=== PATIENT | female | born 1970 | race Caucasian/White ===

== ENCOUNTER 2017-06-04 12:21 | Emergency (ER) | payer OTHER ==
[~2017-06-04] VITALS: Ht 167.6 cm; Wt 155.2 kg
[~2017-06-04 12:21] MED LIST: ALBU1AER9 INH; IBUP-103 PO; LISINOPRIL/HCTZ PO
[2017-06-04 12:27] VITALS: Ht 167.6 cm; Wt 155.2 kg
[2017-06-04] MEDS ORDERED: MoRPHine SULFATE 10 MG/ML CARP/VIAL IM STA (12:56)
[2017-06-04] MEDS ORDERED: ONDANSETRON 4MG OD TAB PO STA (13:20)
--- NOTE | 2017-06-04 13:30 | EMERGENCY ROOM VISIT NOTE ---
History First contact with patient: 12:48 Chief Complaint: SHOULDER PAIN Stated Complaint: TORN ROTATOR CUFF History of Present Illness The patient is a 47 year old female who presents to the Emergency Room via private vehicle accompanied by 2 females with complaints of "shoulder pain". The patient states that she has right shoulder pain which began Friday while at work. She was moving items on a truck while at work, and injured her right shoulder. She states that she follow with [facility] later that evening, and notes that she is to have an MRI of the right shoulder. The pain has worsened but there has been no new trauma. She notes that she had x-rays performed on Friday. She has been using ice and ibuprofen without relief. She did have 1 oxycodone left over from a previous prescription and notes that there is minimal relief with this however the pain is now returning. She rates the overall pain as a 10/10. It is sharp in nature. She denies any chest pain or shortness of breath. She does have a previous rotator cuff injury on the left, and notes that this feels similar on the right. Review of Systems A complete 6-point Review of Systems was discussed with the patient, with pertinent positives and negatives listed in the History of Present Illness. All remaining Review of Systems questions can be considered negative unless otherwise specified. Past Medical/Surgical History Previous rotator cuff injury Family History No pertinent. Social History Smoking Status: Never Smoker Social History: Patient lives locally. Current/Historical Medications Scheduled PRN Oxycodone Ir (Roxicodone Ir), 1-2 TAB PO Q4H PRN for Pain Allergies Coded Allergies: Sulfa Drugs (Verified Allergy, Unknown, NAUSEA AND VOMITNG, 06/04/17) Physical Exam Vital Signs Date Time Temp Pulse Resp B/P (MAP) Pulse Ox O2 Delivery O2 Flow Rate FiO2 06/04/17 14:23 36.6 87 20 157/99 99 06/04/17 14:22 87 20 157/99 99 Room Air 06/04/17 12:27 36.6 91 20 192/115 99 Room Air Physical Exam VITAL SIGNS - Vital signs and nursing notes were reviewed. Stable. Hypertensive. GENERAL -47-year-old female appearing her stated age who is in no acute distress. Communicates well with provider and answers questions appropriately. SKIN - Without rashes. No petechial rashes. The skin overlying the right shoulder is unremarkable. There is no erythema, or edema. The skin is intact. LUNGS - Chest wall symmetric without accessory muscle use, intercostals retractions, or central cyanosis. Normal vesicular breath sounds CTA B/L. No wheezes, rales, or rhonchi appreciated. CARDIAC - RRR with S1/S2. No murmur, rubs, or gallops appreciated. EXTREMITIES - No clubbing or peripheral cyanosis. No pretibial edema present. There is right shoulder tenderness to palpation, decreased range of motion secondary to pain. She is neurovascularly intact in the distal right upper extremity. Medical Decision & Procedures Medications Administered Medications (Trade) Dose Ordered Sig/Thad Route Start Time Stop Time Status Last Admin Dose Admin Morphine Sulfate (MoRPHine SULFATE INJ) 10 mg NOW STAT IM 06/04/17 12:56 06/04/17 12:58 DC 06/04/17 13:24 10 MG Ondansetron HCl (Zofran Odt) 4 mg NOW STAT PO 06/04/17 13:20 06/04/17 13:21 DC 06/04/17 13:24 4 MG Medical Decision Patient was seen and evaluated as above. She presents to us today with right shoulder pain. Her examination is concerning for that of a rotator cuff injury given her location of pain and her limited range of motion. She already has had x-rays performed she notes on Friday with [facility], therefore they will not be redone today as she has had no new trauma. She notes that she called [facility] [place] today and she notes that she was referred here. I do believe that managing her pain is warranted as she is quite hypertensive upon arrival, and is crying. She has tried OTC meds. [place] drug monitoring system reveals no red flags. She does not appear to have any recent visits for pain-related/drug-seeking events. She was given 10 mg of morphine IM here and Zofran ODT for nausea. She had oxycodone earlier in the day without eating and did vomit here some. The vomiting stopped. She appears stable for outpatient management and will be given an arm sling to help with the pain. I did enlist the help of our case filler to help establish a follow-up for the patient as she notes that she has been waiting to hear when she can have an MRI and is also being told that nothing can be done until she has an MRI. The shoe parts caser were able to secure an appointment to get her an MRI tomorrow. I believe this is reasonable. The patient was educated upon management, educated upon worrisome symptoms in which to return, had questions answered prior to discharge, and was discharged home in good condition with a short course of pain medication. In the evaluation and treatment of this patient, the following differential diagnoses were considered: Shoulder Contusion, Shoulder Fracture, Shoulder Dislocation, Thoracic Outlet Syndrome, Adhesive Capsulitis, Rotator Cuff Tear, Proximal Clavicle Head Fracture, Apical Pneumonia, Pneumothorax, Hemothorax, or TB. Impression Primary Impression: Shoulder pain, right Departure Information Dispostion Home / Self-Care Condition GOOD Prescriptions Oxycodone Ir (Roxicodone Ir) 5 Mg Tab 1-2 TAB PO Q4H Y for Pain, #18 TAB For Initial Treatment Prov: Adam Garcia PA-C 06/04/17 Referrals Rodriguez Caban M.D.([place]) (PCP) Alvarez Sunshine M.D. Patient Instructions My [facility] Additional Instructions You have been treated in the Emergency Department for Shoulder Pain. You have received pain medicine in the emergency department which impairs your ability to operate a vehicle. It is illegal for you to drive after receiving these medicines. You have been prescribed Oxy IR to be used for pain control. This is a narcotic medication. You cannot drive or consume alcohol while on this medicine. This medicine should only be used for pain that cannot be controlled with over-the- counter pain medicines. For pain control, you can use the following [id number] medicines (if >12 yo): - Regular strength (325mg/tab) Tylenol (acetaminophen) 2 tabs every 4-6 hours as needed. Do not exceed 12 tablets in a 24 hour period. Avoid taking more than 3 grams (3000 mg) of Tylenol per day. This includes any other sources of acetaminophen you may take on a regular basis. - Regular strength (200 mg/tab) Advil (ibuprofen) 1-2 tabs every 4-6 hours as needed. Do not exceed a dose of 3200 mg per day. If this is a recent injury (<24 hrs), ice can be applied to the area of pain for the first 3 days to help decrease pain and inflammation. You have been provided the number for an Orthopaedic Surgeon. You should call this number as soon as possible to establish a follow-up visit from today's Emergency Department visit. Keep the shoulder brace/sling in place until evaluated by Orthopedics. Continue to perform range of motion exercises several times per day to help prevent the development of a "frozen shoulder". Return to the Emergency Department if your current symptoms worsen despite treatment course outlined above, or if you develop any of the following symptoms : intractable pain despite aforementioned treatment course or new onset of numbness or tingling of the arm.
[2017-06-04] MEDS ORDERED: OXYC1TAB3 PO (13:59)
[2017-06-04 14:23] VITALS: BP 157/99; PULSE 87; TEMP 36.6; O2SAT 99
== END 2017-06-04 14:24 | disposition home or self-care (01) ==
LOC: C.EDB 12:24 → C.EDD 14:24
DX: M25.511 Pain in right shoulder (principal); X58.XXXA Exposure to other specified factors, initial encounter; Y93.89 Activity, other specified; Y92.89 Other specified places as the place of occurrence of the external cause; R03.0 Elevated blood-pressure reading, without diagnosis of hypertension